=== PATIENT | male | born 1950 | race Caucasian/White ===

== ENCOUNTER 2017-01-09 17:15 | Emergency (ER) | payer OTHER ==
[~2017-01-09] VITALS: Ht 182.9 cm; Wt 95.5 kg
[~2017-01-09 17:15] MED LIST: AMB10 PO; ASA325 PO; ATEN25TA38 PO; CLAR10T PO; MIRT30TA PO; QUETIAPINE FUMARATE PO; SIMV10TA4 PO; SYN.1T2 PO; XVIS2550 PO; ZES10 PO; bupropion PO; divalproex PO; niacin PO; prazosin PO; testosterone IM
[2017-01-09 17:23] VITALS: BP 158/86; PULSE 69; RESP 16; O2SAT 97
--- NOTE | 2017-01-09 18:49 | DRSVH ---
PROCEDURE: X-RAY LEFT HAND, MINIMUM THREE VIEWS ([id number]) INDICATIONS: crush injury TECHNIQUE: 3 views of the hand(s) acquired. COMPARISON: None. FINDINGS: Bones: There is a relatively nondisplaced transverse fracture in the proximal aspect of the 4th dist al phalanx. No evidence of articular extension. Elsewhere, there is narrowing of the interphalangea l joints including severe narrowing of the 2nd and 5th distal interphalangeal joints associated promi nent osteophytosis. Carpal bones are normally aligned. No suspicious bony lesions. Soft tissues: No suspicious soft tissue calcifications. IMPRESSION: 1. Fracture of the 4th distal phalanx. 2. 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 Dictated by: Chadd Saeed M.D. on 01/09/2017 at 18:47 Approved by: Chadd Saeed M.D. on 01/09/2017 at 18:48
--- NOTE | 2017-01-09 18:53 | ED.REPORT ---
HPI-Extremity Problem Upper Date of Service Jan 09, 2017 ED Provider: Dr. Marvel Middleton D.O. A 66 year old male with a history of hypertension presents to the ED with a left fourth finger crush injury onset 14:30 today. The patient crushed his finger between two pieces of wood. He heard a "crack" at onset, followed by pain and swelling of his finger. The patient denies numbness or other symptoms. He presents with his finger in a bandage. Nursing Notes Stated Complaint: LEFT RING FINGER INJURY Chief Complaint: Extremity Trauma Nursing Notes Reviewed: Yes Allergies: Coded Allergies: No Known Allergies (Unverified Allergy, Unknown, 01/09/17) Scheduled ([divalproex]) 1,750 MG PO DAILY ([bupropion]) 450 MG PO DAILY ([quetiapine fumarate]) 150 MG PO DAILY ([prazosin]) 10 MG PO DAILY ([testosterone]) 200 MG IM every 2 weeks ([niacin]) 2,000 MG PO AM Aspirin-Expunged Drug, Do Not Renew! (Aspirin-Expunged Drug, Do Not Renew!) 325 Mg Tablet 325 MG PO DAILY Atenolol-Expunged Drug, Do Not Renew! (Atenolol-Expunged Drug, Do Not Renew!) 25 Mg Tablet 25 MG PO DAILY Cephalexin (Keflex) 500 Mg Capsule 500 MG PO QID Levothyroxine-Expunged Drug, Do Not Renew! (Synthroid-Expunged Drug, Do Not Renew!) 100 Mcg Tablet 100 MCG PO AM 0.1 MG = 100 MCG Lisinopril-Expunged Drug, Do Not Renew! (Lisinopril-Expunged Drug, Do Not Renew! ) 10 Mg Tablet 10 MG PO DAILY Loratadine-Expunged Drug, Do Not Renew! (Loratadine-Expunged Drug, Do Not Renew! ) 10 Mg Tablet 10 MG PO DAILY Mirtazapine-Expunged Drug, Do Not Renew! (Remeron-Expunged Drug, Do Not Renew!) 30 Mg Tablet 30 MG PO DAILY Simvastatin-Expunged Drug, Choose New Med! (Simvastatin-Expunged Drug, Choose New Med!) 10 Mg Tablet 10 MG PO HS Zolpidem-Expunged Drug, Do Not Renew! (Zolpidem-Expunged Drug, Do Not Renew!) 10 Mg Tablet 10 MG PO HS For Insomnia Scheduled PRN Hydroxyzine Ya-Expunged Drug, Do Not Renew! (Vistaril-Expunged Drug, Do Not Renew!) 25 Mg Tab 25 MG PO PRN PRN PRN Tramadol (Tramadol) 50 Mg Tablet 50 MG PO Q4H PRN PRN For Pain General Time Seen by MD: 18:53 Chief Complaint Finger injury left 4 Hx Obtained From: Patient Arrived By: Walk-in Onset Occurred: 1 - 4 hours ago Symptom Duration: Since onset Caused by: Accidental, Crushing injury Location: : Finger left 4 Quality: Painful Severity: Current: Moderate Severity: Maximum: Moderate Pertinent Negative: Relieved by nothing Immunizations: Tetanus up to date Recent Healthcare: No recent doctor visit Past Medical History Past Medical History Hypertension Chronic pain in his left shoulder Past Surgical History None reported Smoking History Unknown if Ever Smoker Ambulatory Status Independent Review of Systems Constitutional: Denies: Fever Musculoskeletal: Reports: Extremity pain (Left 4th finger), Extremity swelling (Left 4th finger) Neurologic: Denies: Numbness Complete sys rev & neg: except as marked. Respiratory: Denies: Non-productive cough, Shortness of breath GI: Denies: Diarrhea, Vomiting Physical Exam Initial Vital Signs Vital Signs (First) Date Time Temp Pulse Resp B/P Pulse Ox O2 Delivery O2 Flow Rate FiO2 01/09/17 17:23 36.3 69 16 158/86 97 Room Air Initial VS: Reviewed Head / Eyes: Atraumatic, Normocephalic ENT: Conjunctiva normal, No scleral icterus Neck: Supple, Full range of motion Skin: Warm, Dry, No cyanosis Neurologic: Alert, Oriented, Nonfocal Psychiatric: Mood/affect normal, Behavior normal, Normal thought content General/Constitutional: Awake, Alert, No acute distress Wrist / Hand: Neurologic intact, Vascular intact Finger Exam : Finger Exam: Positive: Ecchymosis present (Distal phalanx), Finger name... ( L ring), Swelling present... (Distal phalanx), Tenderness present... Trauma / Burn / Environmental: Positive: Laceration (Skin tear at base of nail bed left fourth finger) Proximal nail bed interrupted left fourth finger Interpretation & Diagnostics X-Ray Interpretation Xray Interpretation: IMPRESSION: 1. Fracture of the 4th distal phalanx. 2. 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 Dictated by: Chadd Saeed M.D. on 01/09/2017 at 18:47 Study Performed: 3 View X-Ray Ordered: Hand left Interpretation / Wet Read by: Interpret - Radiologist Procedures Laceration Nailbed Mgmt Time: 20:30 Procedure Performed by: ED physician Consent / Setup / Site Prep: Consent from patient Digit Involved: Ring finger left Wound Length: 1 cm Local Anesthesia: Lidocaine 1% Wound Preparation: Betadine Irrigation: Copious Repaired With: ___ O (4), Nylon # Sutures - Skin: 2 (Base of nail bed) Miscellaneous: Nailplate suture in place, Nail fold integrity intac Post-Procedure / Complications: Antibiotic oint applied, Dressing applied, No complications, Condition improved, Tolerated procedure well, Patient stable Subungual Hematoma Evacuation Time: 20:30 Procedure Performed by: ED physician Consent / Setup / Site Prep: Consent from patient, Time-out performed, Hand hygiene observed, Stand sterile technique Digit Involved: Ring finger left Local Anesthesia: Lidocaine 1% Preparation: Betadine Trephination: Needle trephination, Multiple holes, Hematoma evacuated Post-Procedure / Complications: Antibiotic oint applied, Dressing applied, No complications, Condition improved, Tolerated procedure well, Patient stable Re-Eval/Medical Decision Med Decision/Clinical Course finger fracture with overlying nailbed injury, nailbed is sutured back to the finger, finger splint and antibiotics given. Return in follow-up precautions given. Source of Hx: Old records Re-Evaluation/Progress #1: Time of Eval: 19:16 Patient Status: Condition improved Re-Evaluation/Progress Note: Patient's bandage was removed and his finger evaluated. Re-Evaluation/Progress #2: Time of Eval: 19:52 Patient Status: Condition improved Re-Evaluation/Progress Note: Finger numbed for laceration repair Re-Evaluation/Progress #3: Time of Eval: 20:30 Patient Status: Condition improved Re-Evaluation/Progress Note: Laceration management performed. Discussed with patient x-ray results, diagnosis, and plan for discharge. Follow-up and return to the ER instructions given. Patient agrees with plan for care and all questions were addressed. Counseled Regarding: Diagnosis, Need for follow-up, When/why to return to ED Discharge & Departure Impression: Primary Impression: Finger fracture Encounter type: initial encounter Finger: ring finger Fracture type: closed Phalanx: distal Fracture alignment: nondisplaced Laterality: left Qualified Code: S62.665A - Nondisplaced fracture of distal phalanx of left ring finger, initial encounter for closed fracture Additional Impression: Laceration of nail bed of finger Encounter type: initial encounter Qualified Code: S61.319A - Laceration without foreign body of unspecified finger with damage to nail, initial encounter Disposition: Home Discharge Condition All VS Reviewed: Yes Condition: Improved Patient Instructions: Finger Fracture (ED), Splint Care (ED) Additional Instructions: Thank you for entrusting us with your care. Your x-ray indicted a fracture. Please take Keflex as prescribed. Also take tramadol as prescribed for pain. Wear the splint and keep the bandage clean. Your sutures will need to be removed in one week. You may return to the ER, go to Urgent Care, or see your doctor for this. Call your primary care provider or the referral orthopedist tomorrow for a follow-up appointment regarding the fracture. Return to the ER with any new or worsening symptoms. Referrals: Eliot Munroe MD (PCP) Gatito Victor Attestation Portions of this note were transcribed by Erica Sandoval. I, Dr. Middleton, personally performed the history, physical exam, and medical decision-making; I reviewed and confirmed the accuracy of the information in the transcribed note. Signed by: Telly Moreno, 01/09/2017, [id number] copies to: Eliot Munroe MD; Gatito Victor Timothy S DO Jan 09, 2017 18:53 ERICA SANDOVAL Jan 09, 2017 19:05
[2017-01-09] MEDS ORDERED: CEPH-512 PO (20:37)
[2017-01-09] MEDS ORDERED: TRAM50TA2 PO (20:39)
[2017-01-09 21:12] VITALS: BP 175/90; PULSE 70; RESP 20; O2SAT 96
== END 2017-01-09 21:13 | disposition home or self-care (01) ==
LOC: SED 17:15
DX: S62.665A Nondisplaced fracture of distal phalanx of left ring finger, initial encounter for closed fracture (principal); S60.142A Contusion of left ring finger with damage to nail, initial encounter; S61.315A Laceration without foreign body of left ring finger with damage to nail, initial encounter; W23.0XXA Caught, crushed, jammed, or pinched between moving objects, initial encounter; Y93.89 Activity, other specified; Y99.8 Other external cause status; Y92.9 Unspecified place or not applicable; I10 Essential (primary) hypertension; Z79.82 Long term (current) use of aspirin

== ENCOUNTER 2017-04-14 14:29 | Emergency (ER) | payer OTHER ==
[~2017-04-14] VITALS: Ht 182.9 cm; Wt 94.5 kg
[~2017-04-14 14:29] MED LIST changes: +CEPH-512 PO; +TRAM50TA2 PO
[2017-04-14 14:35] VITALS: BP 199/91; PULSE 53; RESP 12; O2SAT 98
[2017-04-14 14:56] LABS: BASOPHILS % (AUTO) 0.3 % (0-3); EOSINOPHILS % (AUTO) 1.2 % (0-5); MONOCYTES % (AUTO) 8.2 % (4-12); Mean Corpuscular Hemoglobin 31.7 pg (27.0-35.0); Mean Corpuscular Volume 91.6 fL (81-100); NEUTROPHILS % (AUTO) 79.3 % (40-74); Platelet Count 267 bil/L (150-400)
--- NOTE | 2017-04-14 15:12 | ED.REPORT ---
HPI-Abd Pain M 40 and Over Date of Service Apr 14, 2017 ED Provider: Александр Heart MD Patient is a 66 year old male with a history of hypertension, bipolar disorder and PTSD who presents to the ED via EMS complaining of right lower quadrant abdominal pain onset 1200 this afternoon. Associated symptoms include pain that radiates into the right flank and testicle, nausea, vomiting and a small amount of blood in his emesis. He denies fever, chills or diaphoresis. The patient reports that he has had kidney stones before but that this does not feel the same. Nursing Notes Stated Complaint: ABDOMINAL PAIN Chief Complaint: Male Abdominal Pain Nursing Notes Reviewed: Yes Allergies: Coded Allergies: codeine (Verified Allergy, Severe, itching all over, 04/14/17) Scheduled ([divalproex]) 1,750 MG PO DAILY ([bupropion]) 450 MG PO DAILY ([quetiapine fumarate]) 150 MG PO DAILY ([prazosin]) 10 MG PO DAILY ([testosterone]) 200 MG IM every 2 weeks ([niacin]) 2,000 MG PO AM Aspirin-Expunged Drug, Do Not Renew! (Aspirin-Expunged Drug, Do Not Renew!) 325 Mg Tablet 325 MG PO DAILY Atenolol-Expunged Drug, Do Not Renew! (Atenolol-Expunged Drug, Do Not Renew!) 25 Mg Tablet 25 MG PO DAILY Cephalexin (Keflex) 500 Mg Capsule 500 MG PO QID Levothyroxine-Expunged Drug, Do Not Renew! (Synthroid-Expunged Drug, Do Not Renew!) 100 Mcg Tablet 100 MCG PO AM 0.1 MG = 100 MCG Lisinopril-Expunged Drug, Do Not Renew! (Lisinopril-Expunged Drug, Do Not Renew! ) 10 Mg Tablet 10 MG PO DAILY Loratadine-Expunged Drug, Do Not Renew! (Loratadine-Expunged Drug, Do Not Renew! ) 10 Mg Tablet 10 MG PO DAILY Mirtazapine-Expunged Drug, Do Not Renew! (Remeron-Expunged Drug, Do Not Renew!) 30 Mg Tablet 30 MG PO DAILY Simvastatin-Expunged Drug, Choose New Med! (Simvastatin-Expunged Drug, Choose New Med!) 10 Mg Tablet 10 MG PO HS Zolpidem-Expunged Drug, Do Not Renew! (Zolpidem-Expunged Drug, Do Not Renew!) 10 Mg Tablet 10 MG PO HS For Insomnia Scheduled PRN Hydroxyzine Ya-Expunged Drug, Do Not Renew! (Vistaril-Expunged Drug, Do Not Renew!) 25 Mg Tab 25 MG PO PRN PRN PRN Tramadol (Tramadol) 50 Mg Tablet 50 MG PO Q4H PRN PRN For Pain General Time Seen by MD: 15:09 Chief Complaint Abdominal pain Hx Obtained From: Patient Arrived By: Ambulance Sudden in Onset?: Yes Onset Occurred: 1 - 4 hours ago Symptom Duration: Since onset Location: : RLQ Quality: Painful Radiation: : Flank right: Inguinal right Severity: Current: Moderate Recent Healthcare: No recent hospitalization, Recent doctor visit Similar Sx Previous: No Past Medical History Past Medical History Hypertension Chronic pain in his left shoulder bipolar disorder PTSD Past Surgical History Reports: Appendectomy Smoking History Unknown if Ever Smoker Social History Other Social History: Poor social support Ambulatory Status Independent Review of Systems Constitutional: Denies: Chills, Fever Respiratory: Denies: Non-productive cough, Shortness of breath GI: Reports: Abdominal pain, Hematemesis, Nausea, Vomiting, Denies: Diarrhea Male: Reports Flank pain, Reports Testicular pain, Denies Testicular swelling Complete sys rev & neg: except as marked. Skin: Denies Itching, Denies Rash Physical Exam Initial Vital Signs Vital Signs (First) Date Time Temp Pulse Resp B/P Pulse Ox O2 Delivery O2 Flow Rate FiO2 04/14/17 14:35 36.5 53 12 199/91 98 Room Air Initial VS: Reviewed General/Constitutional: Awake, Alert Distress / Hydration: Positive: Distress moderate Respiratory / Chest: Atraumatic, Breath sounds NL, Breath sounds = bilat, No respiratory distress Cardiovascular: Heart rate NL, Regular rhythm, Heart sounds NL Abdomen: Atraumatic, Soft Tenderness/Guarding/Rebound: Positive: Tender RLQ... Back: Atraumatic, Inspection NL Head / Eyes: Atraumatic, Normocephalic, PERRL, EOMI Skin: Atraumatic, Color NL, No rash, Warm, Dry Neurologic: Oriented X3, Speech NL, No motor deficits, No sensory deficits Upper Extremity / MS: Atraumatic, Full range of motion Psychiatric: Affect NL, Mood NL Interpretation & Diagnostics Lab Results Interpretation Result Diagram: 04/14/17 1449 04/14/17 1449 Test 04/14/17 14:49 04/14/17 16:18 White Blood Count 9.5th/mm3 (3.8-10.1) Red Blood Count 4.41mil/mm3 (4.40-5.80) Hemoglobin 14.0g/dL (13.8-17.2) Hematocrit 40.4% (41.0-50.0) Mean Corpuscular Volume 91.6fL (81-100) Mean Corpuscular Hemoglobin 31.7pg (27.0-35.0) Mean Corpuscular Hemoglobin Concent 34.7% (32.0-37.0) Red Cell Distribution Width 14.0% (12.3-15.4) Platelet Count 267bil/L (150-400) Neutrophils (%) (Auto) 79.3% (40-74) Lymphocytes (%) (Auto) 10.8% (14-46) Monocytes (%) (Auto) 8.2% (4-12) Eosinophils (%) (Auto) 1.2% (0-5) Basophils (%) (Auto) 0.3% (0-3) Sodium Level 139mEq/L (134-144) Potassium Level 4.8mEq/L (3.5-5.2) Chloride Level 102mEq/L (97-108) Carbon Dioxide Level 22mmol/L (18-29) Blood Urea Nitrogen 16mg/dL (8-27) Creatinine 1.14mg/dL (0.76-1.27) Estimat Glomerular Filtration Rate 68mL/min (>59) Glucose Level 136mg/dL (60-99) Calcium Level 9.7mg/dL (8.5-10.1) Magnesium Level 2.0mg/dL (1.6-2.6) Total Bilirubin 0.6mg/dL (0.0-1.2) Aspartate Amino Transf (AST/SGOT) 22U/L (0-50) Alanine Aminotransferase (ALT/SGPT) 23U/L (0-44) Alkaline Phosphatase 76U/L (25-160) Total Protein 7.9g/dL (6.4-8.4) Albumin 4.4g/dL (3.4-5.0) Lipase 49U/L (13-60) Hold Steele Top Tube Received (Received) Hold Urine Received (Received) CT Abd / Pelvis Interpretation IMPRESSION: 1. Mild right hydroureteronephrosis and perinephric inflammatory fat stranding, secondary to a 4 mm distal right ureteral stone. 2. 2 additional nonobstructing right renal stones, measuring up to 7 mm. 3. Small retrocardiac hiatal hernia. 4. Small fat-containing left inguinal hernia. 5. Sigmoid colon diverticulosis. Dictated by: Fahad Daniel M.D. on 04/14/2017 at 17:42 Approved by: Fahad Daniel M.D. on 04/14/2017 at 17:51 Interpretation / Wet Read by: Interpret - Radiologist Re-Eval/Medical Decision Med Decision/Clinical Course After a prolonged ED course we were ultimately able to get this gentleman is pain and nausea under control. Time of Eval: 18:51 Re-Evaluation/Progress Note: Discussed CT results. Patient states he is still in pain. Time of Eval: 19:45 Patient Status: Pain improved Re-Evaluation/Progress Note: Patient reports that his pain has improved but has been vomiting. Time of Eval: 20:17 Patient Status: Condition unchanged Re-Evaluation/Progress Note: Patient is still vomiting. Time of Eval: 21:29 Patient Status: Condition improved Re-Evaluation/Progress Note: Patient no longer feels nauseous and his pain has improved. Discussed all results and plan for discharge. Patient understands and agrees to the plan. All questions were addressed. Counseled Regarding: Diagnosis, Lab results, Need for follow-up, When/why to return to ED Discharge & Departure Primary Impression: Ureterolithiasis Disposition: Home Vital Signs - All Vital Signs Date Time Temp Pulse Resp B/P Pulse Ox O2 Delivery O2 Flow Rate FiO2 04/14/17 21:18 56 16 168/80 98 Room Air 04/14/17 18:10 63 13 158/81 97 Room Air 04/14/17 14:35 36.5 53 12 199/91 98 Room Air )( All Prior VS Reviewed: Yes Condition: Stable Patient Instructions: Renal Colic (ED) Additional Instructions: Your CT showed that you have a 4 mm stone in the distal right ureter. Be sure to drink plenty of fluids. You can take 1-3 oxycodone/APAP every 4 hours as needed for severe pain. Do not drink alcohol or drive while taking the pain medication. You can also take one 800mg ibuprofen three times the day along with the oxycodone/APAP. You can take 1 Zofran every 4 hours as needed for nausea. 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 Follow up with your primary care physician next week. Follow up with the referred urologist next week if your symptoms continue to persist in 2-3 days. Return to the emergency department if you develop any new or concerning symptoms , especially fever. Referrals: Eliot Munroe MD (PCP) Destiny Clancy MD Attestation Portions of this note were transcribed by Ann Nichole. I, Dr. Heart personally performed the history, physical exam and medical decision-making; I reviewed and confirmed the accuracy of the information in the transcribed note. Signed by: Telly Schultz, 04/14/17 copies to: Eliot Munroe MD, Kirk H MD Apr 14, 2017 15:12 Brenda Nichole Apr 14, 2017 15:21
[2017-04-14] MEDS: Ondansetron 2 mg/mL 2 mL Inj IVPUSH PRN ×2 (15:16→19:52)
[2017-04-14] MEDS: HYDROmorphone 0.5 mg/0.5 mL iSecure Syringe IVPUSH PRN ×4 (15:18→18:10)
[2017-04-14] MEDS ORDERED: Iohexol 300 mg/mL 30 mL Inj PO ONE (15:55)
--- NOTE | 2017-04-14 17:54 | DRSVH ---
PROCEDURE: CT ABDOMEN AND PELVIS WITH CONTRAST ([id number]) INDICATIONS: 66 year-old male with right lower quadrant abdominal pain. TECHNIQUE: After the administration of oral and intravenous contrast, 5 mm thick sections acquired from the diap hragms to the symphysis. 5 mm thick coronal and sagittal reformats were performed. For radiation do se reduction, the following was used: automated exposure control, adjustment of mA and/or kV accordi ng to patient size. COMPARISON: [facility], CT, CT ABD PELVIS W CON, 01/17/2017, 9:53. FINDINGS: Image quality: Excellent. ABDOMEN: Lung bases: Lung bases are clear. Heart size is normal. There is small retrocardiac hiatal hernia as before. Solid organs: Liver and spleen are normal in size and enhancement. Gallbladder wall thickness is no rmal. Biliary system is non-dilated. Pancreas enhances normally. No adrenal nodules. Kidneys are normal in size, with new mild right hydronephrosis and perinephric inflammatory fat stranding. 2 nono bstructing right renal stones are present, measuring up to 7 mm. On axial image 80, a 4 mm distal rig ht ureteral stone is present, proximal to the ureterovesical junction. No left kidney or ureteral sto spike. 2.1 cm anterior right renal cortical simple cyst is again noted. Peritoneum and bowel: Stomach, small bowel, and colon loops are normal in caliber and wall thickness . There is sigmoid colon diverticulosis. The appendix is not well seen. No free fluid or air. Nodes and vessels: No retroperitoneal or mesenteric adenopathy. Aorta and inferior vena cava are no rmal in caliber, with aortoiliac atherosclerosis. Miscellaneous: No ventral hernias. PELVIS: Genitourinary: Bladder wall thickness is normal. Prostate gland is normal in size. Miscellaneous: Small fat-containing left inguinal hernia is again noted. No inguinal adenopathy by CT size criteria. Bones: No suspicious bony lesions. No vertebral body compression fractures. There is lumbar and lo wer thoracic spine disc degeneration. IMPRESSION: 1. Mild right hydroureteronephrosis and perinephric inflammatory fat stranding, secondary to a 4 mm d istal right ureteral stone. 2. 2 additional nonobstructing right renal stones, measuring up to 7 mm. 3. Small retrocardiac hiatal hernia. 4. Small fat-containing left inguinal hernia. 5. Sigmoid colon diverticulosis. Dictated by: Fahad Daniel M.D. on 04/14/2017 at 17:42 Approved by: Fahad Daniel M.D. on 04/14/2017 at 17:51
[2017-04-14 18:10] VITALS: BP 158/81; PULSE 63; RESP 13; O2SAT 97
[2017-04-14] MEDS ORDERED: HYDROmorphone 1 mg/mL Inj IVPUSH ONE (18:55)
[2017-04-14] MEDS ORDERED: Promethazine Inj 25 MG in Dextrose 5%-Pha MIX 50 ML IV ONE (20:20)
[2017-04-14 21:18] VITALS: BP 168/80; PULSE 56; RESP 16; O2SAT 98
[2017-04-14] MEDS ORDERED: _oxyCODONE/APAP 5-325 mg Tablet PO PRN (21:40)
[2017-04-14] MEDS ORDERED: _Ondansetron ODT 4 mg Tablet PO PRN (21:40)
[2017-04-14] MEDS ORDERED: PROM25TA14 PO (21:44)
[2017-04-14] MEDS ORDERED: OXYC1TAB24 PO (21:44)
[2017-04-14 22:17] VITALS: BP 163/89; PULSE 62; RESP 18; O2SAT 94
== END 2017-04-14 22:19 | disposition home or self-care (01) ==
LOC: SED 14:29
DX: N20.1 Calculus of ureter (principal); I10 Essential (primary) hypertension; F31.9 Bipolar disorder, unspecified; Z88.5 Allergy status to narcotic agent
CPT/HCPCS: 36415; 74177; 80053; 83690; 83735; 85025; 96374; 96375; 96376; 99285; J1170; J1885; J2405; J2550; Q9967

== ENCOUNTER 2017-06-11 15:07 | Emergency (ER) | payer OTHER ==
[~2017-06-11] VITALS: Ht 182.9 cm; Wt 95.5 kg
[~2017-06-11 15:07] MED LIST changes: +OXYC1TAB24 PO; +PROM25TA14 PO
[2017-06-11 15:13] VITALS: BP 161/88; PULSE 98; RESP 16; O2SAT 98
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
[2017-06-11 18:37] VITALS: BP 150/92; PULSE 69; O2SAT 98
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
== END 2017-06-11 18:38 | disposition home or self-care (01) ==
LOC: SED 15:07
DX: S16.1XXA Strain of muscle, fascia and tendon at neck level, initial encounter (principal); S54.12XA Injury of median nerve at forearm level, left arm, initial encounter; S60.222A Contusion of left hand, initial encounter; V53.5XXA Driver of pick-up truck or van injured in collision with car, pick-up truck or van in traffic accident, initial encounter; Y93.89 Activity, other specified; Y92.410 Unspecified street and highway as the place of occurrence of the external cause; Y99.8 Other external cause status; I10 Essential (primary) hypertension; F43.10 Post-traumatic stress disorder, unspecified; Z79.82 Long term (current) use of aspirin; Z88.5 Allergy status to narcotic agent